=== PATIENT | female | born 1935 | race Caucasian/White ===

== ENCOUNTER 2017-09-22 17:23 | Emergency (ER) | payer BC, OTHER, MEDICARE ==
[~2017-09-22] VITALS: Ht 165.1 cm; Wt 79.4 kg
[2017-09-22 17:40] VITALS: BP 128/57
--- NOTE | 2017-09-22 17:56 | Emergency Room Report ---
History of Present Illness General Chief Complaint: Head Injury Source: Patient Present Illness HPI Patient presents after trauma to the fore head Patient was at jury duty going into the second low she tripped and fell forward hitting the right side of her head Also complains of left knee pain this happened prior to arrival Denies any chest pain or shortness of breath Denies any neck pain Denies any photophobia Denies any labs of consciousness Denies any focal weakness Allergies: Coded Allergies: HYDROCODONE (Verified Allergy, Unknown, 09/22/17) Patient History Past Medical History: see triage record Pertinent Family History: none Reviewed Nursing Documentation: PMH: Agreed, PSxH: Agreed Nursing Documentation-PMH Past Medical History: No Stated History Review of Systems All Other Systems: negative except mentioned in HPI Physical Exam Vital Signs Date Time Temp Pulse Resp B/P (MAP) Pulse Ox O2 Delivery O2 Flow Rate FiO2 09/22/17 17:40 97.5 76 16 128/57 99 Room Air Sp02 EP Interpretation: reviewed, normal General Appearance: no apparent distress Head: other - Approximately 2 x 2 centimeter hematoma right temporal region Eyes: bilateral eye PERRL, bilateral eye EOMI ENT: normal pharynx, no angioedema Neck: supple Respiratory: lungs clear Cardiovascular #1: regular rate, rhythm, no edema Gastrointestinal: non tender, soft, no mass Musculoskeletal: other - Mild erythema to the anterior lower left patella, range of motion intact Neurologic: alert, oriented x3, responsive Skin: other - as above Lymphatic: no adenopathy Medical Decision Making Diagnostic Impression: Primary Impression: Acute head injury Additional Impression: Contusion, knee ER Course Given the symptoms and the findings on clinical exam patient did have CAT scan imaging of the head No acute disease was seen knee x-ray does not show any acute fractures And the patient is stable for close followup Other X-Ray Diagnostic Results Other X-Ray Diagnostic Results : X-Ray ordered: left knee # of Views/Limited Vs Complete: 3 View Indication: Pain EP Interpretation: Yes Interpretation: no dislocation, no soft tissue swelling, no fractures Impression: No acute disease Electronically Signed by: Catarino Howe, DO CT/MRI/US Diagnostic Results CT/MRI/US Diagnostic Results : Impression CT head no acute disease Last Vital Signs Date Time Temp Pulse Resp B/P (MAP) Pulse Ox O2 Delivery O2 Flow Rate FiO2 09/22/17 17:40 97.5 76 16 128/57 99 Room Air Status: improved Disposition: HOME, SELF-CARE Condition: Improved Additional Instructions: Patient is provided with the discharge instructions notified to follow up with primary doctor in the next 2-3 days otherwise return to the er with any worsening symptoms. Please note that this report is being documented using [employer] technology. This can lead to erroneous entry secondary to incorrect interpretation by the dictating instrument. CATARINO HOWE D.O. Sep 22, 2017 17:56
--- NOTE | 2017-09-23 08:32 | Diagnostic Imaging Report ---
Indications: Head trauma Technique: Spiral acquisitions obtained through the brain. Angled axial and coronal 5 x 5 mm slices were reconstructed. Total dose length product 1362.01 mGycm. CTDI vol(s) 70.38 mGy. Dose reduction achieved using automated exposure control Comparison: None. Findings: There is mild age-related enlargement of the ventricles and extra axial CSF spaces and minimal periventricular deep white matter chronic ischemic change. 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 There is a small scalp hematoma in the right frontotemporal region. Intact calvarium. Visualized orbits and sinuses are unremarkable. Impression: Negative for acute intracranial bleed or mass effect Minimal age-related changes, as described Evidence of superficial scalp soft tissue injury This agrees with the preliminary interpretation provided overnight by [facility]. The CT scanner at [facility] is accredited by the [employer] [place] [employer] and the scans are performed using protocols designed to limit radiation exposure to as low as reasonably achievable to attain images of sufficient resolution adequate for diagnostic evaluation.
--- NOTE | 2017-09-23 11:47 | Diagnostic Imaging Report ---
Indication: Pain, status post fall Technique: 3 views of the left knee Comparison: None Findings: No acute fractures. No dislocations. No suprapatellar effusion. There is minimal degenerative joint space narrowing the medial joint compartment. Small cystic lesion is seen in the medial tibial plateau, probably a small subchondral cyst Impression: No acute bony trauma Mild degenerative changes
== END 2017-09-22 19:19 | disposition home or self-care (01) ==
LOC: EMR 19:19
DX: S00.83XA Contusion of other part of head, initial encounter (principal); S80.02XA Contusion of left knee, initial encounter; W01.0XXA Fall on same level from slipping, tripping and stumbling without subsequent striking against object, initial encounter; Y92.9 Unspecified place or not applicable
CPT/HCPCS: 70450; 99284